=== PATIENT | female | born 1990 ===

== ENCOUNTER 2017-04-28 16:50 | Emergency (ER) | payer SELFPAY ==
[2017-04-28 17:17] VITALS: BMI 44.2
[2017-04-28 17:18] VITALS: TEMP 98.6
[2017-04-28] MEDS ORDERED: Alum-Mag Hydrox-Simethicone Susp (30 mL) PO STA (17:18)
--- NOTE | 2017-04-28 17:23 | C.PDOC ---
History Of Present Illness Radha Ziegler is a 26 year old female, who presents to the emergency department complaining of nausea and vomiting since three days. Patient also complains of a sore throat secondary to vomiting. Patient states she is unsure if she could be . Patient denies chest pain, shortness of breath, headache, fever, chills, cough, diarrhea, abdominal pain, dizziness or other complaints. Time Seen by Provider: 04/28/17 17:06 Chief Complaint (Nursing): Abdominal Pain History Per: Patient History/Exam Limitations: no limitations Onset/Duration Of Symptoms: Days (3) Current Symptoms Are (Timing): Still Present Radiation Of Pain To:: None Associated Symptoms: Nausea, Vomiting. denies: Fever, Diarrhea Exacerbating Factors: None Alleviating Factors: None Recent travel outside of the [place]: No Abnormal Vaginal Bleeding: No Past Medical History Reviewed: Historical Data, Nursing Documentation, Vital Signs Vital Signs: Last Vital Signs Temp 98.6 F 04/28/17 17:07 Pulse 80 04/28/17 18:33 Resp 16 04/28/17 18:33 BP 132/85 04/28/17 18:33 Pulse Ox 100 04/29/17 00:30 Family History: States: No Known Family Hx - Social History Hx Alcohol Use: No Hx Substance Use: No - Immunization History Hx Tetanus Toxoid Vaccination: No Hx Influenza Vaccination: No Hx Pneumococcal Vaccination: No Review Of Systems Constitutional: Negative for: Fever, Chills Cardiovascular: Negative for: Chest Pain Respiratory: Negative for: Cough, Shortness of Breath Gastrointestinal: Positive for: Nausea, Vomiting. Negative for: Abdominal Pain , Diarrhea Genitourinary: Negative for: Dysuria Musculoskeletal: Negative for: Back Pain Skin: Negative for: Rash Neurological: Negative for: Headache Physical Exam - Physical Exam Appears: Well, Non-toxic, No Acute Distress Skin: Normal Color, Warm, Dry Head: Atraumatic, Normacephalic Eye(s): bilateral: Normal Inspection Throat: Normal, No Erythema, No Exudate Gastrointestinal/Abdominal: Normal Exam, Bowel Sounds (Normal), Soft, No Tenderness, No Distention, No Guarding, No Rebound, Other (Obese) Neurological/Psych: Oriented x3, Normal Speech ED Course And Treatment - Laboratory Results Lab Interpretation: Normal (UA wnl) Urine POC: Negative O2 Sat by Pulse Oximetry: 100 (room air) Pulse Ox Interpretation: Normal Progress Note: zofran, pepcid, maalox Reevaluation Time: 18:01 Reassessment Condition: Improved Medical Decision Making Medical Decision Making: Impression: 26 y/o female with unremarkable physical exam c/o nausea and vomiting for 3 days. Plan: -- Urinalysis -- Pepcid, Zofran, and Maalox -- Reassess and disposition Progress Notes: initially suspected and nausea, preg neg improved with ED tx Disposition Doctor Will See Patient In The: Office Counseled Patient/Family Regarding: Studies Performed, Diagnosis - Disposition Referrals: [facility] [Outside] Disposition: HOME/ ROUTINE Disposition Time: 18:02 Condition: GOOD Additional Instructions: prueba de embarazzo NEGATIVO: NO ESTAS EMBARASSADA Sigue Pepcid 20 mg en la noche para bajar el acides del estomago Maalox 30 cc (colleen cucharada) 4-5x/day para reflujo acides Zofran ODT 4 mg (para la nausea) se desuelva en la boca cada 6 horas huong necessario Sigue en la [facility] huong necessario. Prescriptions: Ondansetron ODT [Zofran ODT] 4 mg PO Q6H PRN #6 odt PRN Reason: Nausea/Vomiting Instructions: Nausea and Vomiting, Adult (DC) Forms: [employer] (Vietnamese) Print Language: AMHARIC - Clinical Impression Clinical Impression: Nausea, Vomiting, Encounter for test - Scribe Statement The provider has reviewed the documentation as recorded by the Sridevi Costaibe Attestation: Deloris Gomez MD Scribe Attestation: All medical record entries made by the Scribe were at my direction and personally dictated by me. I have reviewed the chart and agree that the record accurately reflects my personal performance of the history, physical exam, medical decision making, and the department course for this patient. I have also personally directed, reviewed, and agree with the discharge instructions and disposition.
[2017-04-28] MEDS ORDERED: Aluminum Hydroxide/Magnesium Hydroxide Susp (30 mL) ONE (17:25)
[2017-04-28 17:50] LABS: HCG,QUALITATIVE URINE NEGATIVE (NEGATIVE)
[2017-04-28 17:53] LABS: SQUAMOUS EPITHIAL 7 /hpf (0-5); URINE BACTERIA RARE (<OCC); URINE BILIRUBIN NEGATIVE (NEGATIVE); URINE BLOOD NEGATIVE (NEGATIVE); URINE CLARITY Hazy (Clear); URINE COLOR Red (YELLOW); URINE GLUCOSE (UA) NORMAL (Normal); URINE LEUKOCYTE ESTERASE 3+ Leu/uL (Negative); URINE NITRATE NEGATIVE (NEGATIVE); URINE PROTEIN NEGATIVE (NEGATIVE); URINE UROBILINOGEN NORMAL mg/dL (0.2-1.0)
[2017-04-28 18:34] VITALS: BP 132/85; PULSE 80; RESP 16
[2017-04-29 00:30] VITALS: O2SAT 100
== END 2017-04-28 18:00 | disposition home or self-care (01) ==
LOC: C.ER 16:50
DX: R11.2 Nausea with vomiting, unspecified (principal); Z32.02 Encounter for pregnancy test, result negative